=== PATIENT | female | born 1960 | race Caucasian/White ===

== ENCOUNTER → 2019-01-18 | Outpatient (CLI) | payer OTHER ==
--- NOTE | 2019-01-18 16:47 | CARDNUC ---
[place] [address] CARDIAC NUCLEAR IMAGING REPORT Name: ALEXANDRDEMETRIO OSUNA Room: [facility]#: [id number] Admission: 01/18/19 Attend Phys: Ludy Lugo, Discharge: Date of : 56 Date of Service: 01/18/19 1647 Report #: [id number] THIS REPORT FOR: //name// APPROVED REPORT Imaging Protocol: Stress Tc-99m/Rest Tc-99m 1 day Study performed: 01/18/2019 09:44:48 Indication: Chest pain, Pre-op. Patient Location: Out-Patient Stress Tech: Elly Mckee Stress Nurse: Aleksandra Ram RN Ht: 5 ft 5 in Wt: 154 lbs BSA: 1.77 m2 BMI: 25.62 Medical History Medical History: Angina, COPD, Fatigue, Former Smoker, HTN, Hyperlipidemia, SOB, Weakness, s/p back surgery, knee damage. Medications: Losartan, Pravastatin. Allergies: Atorvastatin, Betadyne, Meloxicam, Doxycycline, Lunesta, Naproxen, Vicodin. Cardiac Risk Factors: Age, FHX of CAD, HTN, Hyperlipidemia, SOB, Past Smoker, COPD. Previous Cardiac Procedures: None Pretest Chest Pain Characteristics: No chest pain Exercise History: Sedentary Physical Disabilities: Bad knees and back. Meds Held (24 hrs): None Resting Data Rest SPECT myocardial perfusion imaging was performed in supine position 30 minutes following the intravenous injection of 10.0 mCi of Tc-99m Sestamibi. Time of rest injection: 08:10 The images were gated to evaluate regional wall motion and calculate left ventricular ejection fraction. Administration Route: IV Administration Site: Right Wrist Pharmacologic Stress Pharmacologic stress test was performed by injecting Regadenoson 0.4 mg IV push over 10-15 seconds immediately followed by the intravenous injection of 34.1 mCi of Tc-99m [place] [address] CARDIAC NUCLEAR IMAGING REPORT Name: DEMETRIO STRANGE Room: [facility]#: [id number] Admission: 01/18/19 Attend Phys: Ludy Lugo, Discharge: Date of : 56 Date of Service: 01/18/19 1647 Report #: [id number] Time of stress injection: 10;10 Administration Route: IV Administration Site: Right Wrist Heart Rate at time of stress injection: 197 bpm. Gated Stress SPECT was performed 40 minutes after stress injection. The images were gated to evaluate regional wall motion and calculate left ventricular ejection fraction. Prone imaging was performed. Stress Test Details Stress Test: Pharmacologic stress testing performed using 0.4 mg of regadenoson per 5 mL given IV over 10 seconds. Reason for pharmacologic stress test: Knee damage, back pain.. 60 mg caffeine given for Rapid HR, HTN, dyspnea, dizziness.. HR Max Heart Rate (APMHR): 159 bpm Resting HR: 78 bpm Target HR (85% APMHR): 135 bpm Max HR Achieved: 197 bpm % of APMHR: 123 Recovery HR: 81 bpm BP Resting BP: 149/92 mmHg Max BP: 182/112 mmHg Recovery BP: 182/98 mmHg ECG Resting ECG: Sinus Rhythm Stress ECG: Sinus Rhythm ST Change: None Arrhythmia: SVT Recovery ECG: Sinus Rhythm Recovery ST Change: None Recovery Arrhythmia: SVT Clinical Reason for Termination: Completed protocol Stress Symptoms: Dyspnea, Dizziness, Fatigue, Lightheaded, Weakness, HTN, SVT's, Tingling in fingers bilaterally. Exercise duration: 00 min 00 sec Exercise capacity: 1.00 METs The patient had no clinical symptoms with Lexiscan infusion. Nurse Comments A 59 YEAR OLD FEMALE PRESENTED FOR NUCLEAR STRESS TEST [place] [address] CARDIAC NUCLEAR IMAGING REPORT Name: DEMETRIO STRANGE Room: [facility]#: [id number] Admission: 01/18/19 Attend Phys: Ludy Lugo, Discharge: Date of : 56 Date of Service: 01/18/19 1647 Report #: [id number] CLEARANCE AND CP. PATIENT RESPONDED STRONGLY TO LEXISCAN WITH INCREASED HR UP TO 197 BPM AND INCREASED B/P. RECOVERY REQUIRED 60 MG IV CAFFEINE TO HELP WITH SYMPTOMS, CAFFEINE WAS EFFECTIVE IN LOWERING HR AND MAKING PATIENT FEEL BETTER. Juan Carlos Allen WAS ASKED TO LOOK AT PATIENT AND TEST RESPONSE WHICH SHE DID. PATIENT IMPROVED AFTER IV CAFFEINE WAS ADMINISTERED. PATIENT WAS ESCORTED VIA WHEELCHAIR BY STAFF TO NUCLEAR MEDICINE FOR IMAGES. PATIENT WAS STABLE WITH NO FUTHER COMPLAINTS AT THAT TIME. Stress ECG Conclusion The baseline 12-lead EKG shows sinus rhythm without ST segment abnormality. EKGs during and after stress show sinus rhythm with no significant ST segment changes. Baseline. The patient did have 2 episodes of sustained supraventricular tachycardia that resolved spontaneously. The heart rate with her SVT was 190 bpm. Study Quality Study: Good Artifact: Mild Breast artifact Study Data At rest, the left ventricular ejection fraction was 65%.. Post stress, the left ventricular ejection was D9%.. TID = 1.05. Perfusion Fusion images obtained in the supine position at rest and post stress show mild photopenia in the distal anterior wall that resolves completely with post stress prone imaging suggesting breast attenuation artifact. No other significant fixed or reversible defects were identified. Wall Motion Normal left ventricular wall motion. Nuclear Conclusion ECG Findings: negative for ischemia Clinical Findings: negative for ischemia Nuclear Findings: negative for ischemia Exercise Capacity: not assessed Left Ventricular Function: normal Risk Study: low Myocardial perfusion images showed no defect to suggest infarct or ischemia. Left ventricular systolic function appears normal on gated studies. This [place] [address] CARDIAC NUCLEAR IMAGING REPORT Name: DEMETRIO STRANGE OSUNA [id number] Admission: 01/18/19 Attend Phys: Ludy Lugo, Discharge: Date of : 56 Date of Service: 01/18/191646 Report #: [id number] The patient did have 2 episodes of sustained supraventricular tachycardia at a rate of 190 bpm that both resolved spontaneously. <Conclusion> The baseline 12-lead EKG shows sinus rhythm without ST segment abnormality. EKGs during and after stress show sinus rhythm with no significant ST segment changes. Baseline. The patient did have 2 episodes of sustained supraventricular tachycardia that resolved spontaneously. The heart rate with her SVT was 190 bpm. <ELECTRONICALLY SIGNED> By: Christiano Meza MD, FACC 01/18/191646 46 46 Christiano Meza MD, FACC /INF
== END ==
LOC: M.NUC 01-06 16:26
DX: R93.41 Abnormal radiologic findings on diagnostic imaging of renal pelvis, ureter, or bladder (principal); R07.2 Precordial pain; J44.9 Chronic obstructive pulmonary disease, unspecified; I10 Essential (primary) hypertension; E78.5 Hyperlipidemia, unspecified; Z88.8 Allergy status to other drugs, medicaments and biological substances; Z79.899 Other long term (current) drug therapy; Z87.891 Personal history of nicotine dependence